=== PATIENT | female | born 1990 | race Asian ===

== ENCOUNTER 2017-03-14 00:36 | Emergency (ER) | payer OTHER ==
[2017-03-14 00:52] VITALS: RESP 16; TEMP 98.1
--- NOTE | 2017-03-14 01:12 | EDPHY ---
H & P Stated Complaint: unable to sleep, feeling shakey HPI/ROS: HPI CHIEF COMPLAINT: Anxiety, can't sleep HISTORY OF PRESENT ILLNESS: This patient very pleasant 26-year-old female significant past medical history for bipolar disorder, takes Depakote and Risperdal, she presents emergency room stating that she feels very anxious and having racing thoughts and having trouble sleeping. She denies want hurt herself or anybody else. Denies suicidal ideation or homicidal ideation. Denies vomiting. At time she feels nauseous. She feels really anxious. She denies chest pain or shortness of breath. Denies abdominal pain. Denies being . She presents with her and child at bedside. She just arrived from [facility] on Monday. She relocated to [place]. Her lives here. She has no primary care doctor at this time. Past Medical History: Bipolar disorder Past Surgical History: Denies recent surgical history Social History: Denies daily use of drugs alcohol tobacco products. Family History: Noncontributory ROS REVIEW OF SYSTEMS: A comprehensive 10 point review of systems is otherwise negative aside from elements mentioned in the history of present illness. Exam Constitutional appears well nontoxic, triage nursing summary reviewed, vital signs reviewed, awake/alert. Eyes normal conjunctivae and sclera, EOMI, PERRLA. HENT normal inspection, atraumatic, moist mucus membranes, no epistaxis, neck supple/ no meningismus, no raccoon eyes. Respiratory clear to auscultation bilaterally, normal breath sounds, no respiratory distress, no wheezing. Cardiovascular rate normal, regular rhythm, no murmur, no edema, distal pulses normal. Gastrointestinal soft, non-tender, no rebound, no guarding, normal bowel sounds, no distension, no pulsatile mass. Genitourinary no CVA tenderness. Musculoskeletal no midline vertebral tenderness, full range of motion, no calf swelling, no tenderness of extremities, no meningismus, good pulses, neurovascularly intact. Skin pink, warm, & dry, no rash, skin atraumatic. Neurologic awake, alert and oriented x 3, AAOx3, moves all 4 extremities equally, motor intact, sensory intact, CN II-XII intact, normal cerebellar, normal vision, normal speech. Psychiatric anxious Heme/Lymph/Immune no lymphadenopathy. Differential Diagnosis: Includes but is not limited to in a particular order acute anxiety, insomnia, bipolar disorder Medical Decision Making: Plan for this patient she has normal vital signs she appears well nontoxic, cooperative. Does state she feels anxious and can't sleep. 1 mg p.o. Ativan will be given to her. And will re-evaluate her. Re-evaluation: 0130: Re-evaluation patient resting comfortably feels better after p.o. Ativan 1 mg. Ready for discharge. Resting comfortably stable vital signs. Feels better and is ready to go home. Limited supply of Ativan given for anxiety. Source: Patient - Personal History LMP (Females 10-55): 15-21 Days Ago Current Tetanus/Diphtheria Vaccine: Unsure Current Tetanus Diphtheria and Acellular Pertussis (TDAP): Unsure - Medical/Surgical History Hx Asthma: No Hx Chronic Respiratory Disease: No Hx Diabetes: No Hx Cardiac Disease: No Hx Renal Disease: No Hx Cirrhosis: No Hx Alcoholism: No Hx HIV/AIDS: No Hx Splenectomy or Spleen Trauma: No Other PMH: possible bipolar Dx - Social History Smoking Status: Never smoked Constitutional: Initial Vital Signs Temperature (C) 36.7 C 03/14/17 00:49 Heart Rate 78 03/14/17 00:49 Respiratory Rate 16 03/14/17 00:49 Blood Pressure 111/68 03/14/17 00:49 O2 Sat (%) 97 03/14/17 00:49 O2 Delivery Mode Room Air Allergies/Adverse Reactions: No Known Allergies Allergy (Unverified 03/14/17 00:49) Home Medications: Medication Instructions Recorded LORazepam [Ativan] 1 mg PO DAILY #4 tablet 03/14/17 Medical Decision Making - Data Points Medications Given: Discontinued Medications Lorazepam (Ativan) 1 mg PO ONCE ONE Stop: 03/14/17 01:18 Last Admin: 03/14/17 01:19 Dose: 1 mg Departure - Departure Disposition: Home, Routine, Self-Care Clinical Impression: Anxiety Condition: Good Instructions: Anxiety (ED) Additional Instructions: 1. Return emergency room if you have any further symptoms questions or concerns. 2. Continue your bipolar medications. 3. I have given you very limited supply of Ativan this is an anxiety medicine only take this for feeling very anxious. Referrals: NONE *PRIMARY CARE P,. [Primary Care Provider] - As per Instructions [facility],. [Clinic] - As per Instructions Prescriptions: LORazepam [Ativan] 1 mg PO DAILY #4 tablet
[2017-03-14] MEDS ORDERED: LORazepam 1 MG TAB PO ONE (01:17)
[2017-03-14] MEDS ORDERED: LORazepam 1 MG TAB ONE (01:17)
[2017-03-14 01:57] VITALS: BP 114/74; PULSE 69; O2SAT 98
== END 2017-03-14 01:52 | disposition home or self-care (01) ==
DX: F41.9 Anxiety disorder, unspecified (principal)